=== PATIENT | female | born 1955 | race Caucasian/White ===

== ENCOUNTER 2016-07-14 08:14 | Emergency (ER) | payer MEDICARE, OTHER ==
[~2016-07-14] VITALS: Ht 177.8 cm; Wt 62.0 kg
[~2016-07-14 08:14] MED LIST: BACL20TA PO; ZOFR4TAB3 SL; ZOLO50TA PO
[2016-07-14 08:20] VITALS: BP 181/107; PULSE 90; RESP 18; TEMP 97.8; O2SAT 96
[2016-07-14] MEDS ORDERED: BACL20TA PO (08:36)
[2016-07-14] MEDS ORDERED: ZOLO25TA PO (08:36)
[2016-07-14 08:37] VITALS: BP 181/107; PULSE 80; RESP 17; TEMP 97.8; O2SAT 96
[2016-07-14] MEDS ORDERED: DEXAMETHASONE SOD PHOS 20 MG/5 ML VIAL IM ONE (08:45)
[2016-07-14] MEDS ORDERED: KETOROLAC TROMETHAMINE 60 MG/2 ML (IM) VIAL IM ONE (08:45)
[2016-07-14] MEDS ORDERED: PERC5TAB12 PO (08:48)
[2016-07-14] MEDS ORDERED: MEDR4PAK PO (08:48)
[2016-07-14] MEDS ORDERED: DIAZ5 PO (08:48)
--- NOTE | 2016-07-14 08:48 | PD ---
HPI Chief Complaint: Back/ Neck Pain or Injury Time Seen by Provider: 08:24 Travel History International Travel<30 days: No Contact w/Intl Traveler<30days: No History of Present Illness HPI Patient is a 61 year old female who presents to ER with complaint of back pain. Patient reports that she lifts and rolls her who is disabled and re- injured her back 3 days ago. Report that she has history of low back pain in the past. Reports that pain is nonradiating in nature. Reports pain across who whole low back. Denies saddle anesthesia. Denies incontinence or retention or urine or bowel. Denies saddle anesthesia. Patient denies fever/chills. Patient ambulatory in the ER. PFSH Past Medical History Depression: Yes Diminished Hearing: No Tubal Ligation: Yes Past Surgical History Neurologic Surgery: Yes (CERVICAL DISC) Social History Alcohol Use: Yes (6-8 beers daily) Tobacco Use: Yes (more than 1ppd) Substance Use: No Allergies-Medications (Allergen,Severity, Reaction): Coded Allergies: No Known Allergies (Verified , 07/14/16) Reported Meds & Prescriptions Reported Meds & Active Scripts Active Percocet (Oxycodone-Acetaminophen) 5-325 mg Tab 1 Tab PO Q6H PRN Medrol Dosepak (Methylprednisolone) 4 Mg Dspk 4 Mg PO DIRECTED Per Pharmacist direction Valium (Diazepam) 5 Mg Tab 5 Mg PO BID PRN Reported Zoloft (Sertraline HCl) 25 Mg Tab 25 Mg PO DAILY Baclofen 20 Mg Tab 20 Mg PO HS Review of Systems General / Constitutional: No: Fever Eyes: No: Visual changes HENT: No: Headaches Cardiovascular: No: Chest Pain or Discomfort Respiratory: No: Shortness of Breath Gastrointestinal: No: Abdominal Pain Genitourinary: No: Dysuria Musculoskeletal: Positive: Pain ("low back pain") Skin: No Rash Neurologic: No: Weakness Psychiatric: No: Depression Endocrine: No: Polydipsia Hematologic/Lymphatic: No: Easy Bruising Physical Exam Narrative GENERAL: Nad, nontoxic SKIN: Focused skin assessment warm/dry. HEAD: Atraumatic. Normocephalic. EYES: Pupils equal and round. No scleral icterus. No injection or drainage. ENT: No nasal bleeding or discharge. Mucous membranes pink and moist. NECK: Trachea midline. No JVD. CARDIOVASCULAR: Regular rate and rhythm. No murmur appreciated. RESPIRATORY: No accessory muscle use. Clear to auscultation. Breath sounds equal bilaterally. GASTROINTESTINAL: Abdomen soft, non-tender, nondistended. No saddle anesthesia MUSCULOSKELETAL: No obvious deformities. No clubbing. No cyanosis. No edema. Patient with paraspinal muscle tenderness to lumbar spine, Patient walking in ER with normal gait. NEUROLOGICAL: Awake and alert. No obvious cranial nerve deficits. Motor grossly within normal limits. Normal speech. Data Data Last Documented VS Vital Signs Date Time Temp Pulse Resp B/P Pulse Ox O2 Delivery O2 Flow Rate FiO2 07/14/16 08:37 97.8 80 17 181/107 96 Orders Spine, Lumbar - Ltd (Ap & Lat) (07/14/16 ) Ketorolac Inj (Toradol Inj) (07/14/16 08:45) Dexamethasone Inj (Decadron Inj) (07/14/16 08:45) Urinalysis - C+S If Indicated (07/14/16 08:36) Bladder Scan PRN (07/14/16 08:36) Labs Laboratory Tests Test 07/14/16 08:45 Urine Collection Type CLEAN CATCH Urine Color YELLOW Urine Turbidity CLEAR Urine pH 5.5 Urine Specific [place] 1.008 Urine Protein NEG mg/dL Urine Glucose (UA) NEG mg/dL Urine Ketones NEG mg/dL Urine Occult Blood NEG Urine Nitrite NEG Urine Bilirubin NEG Urine Leukocyte Esterase NEG Urine RBC 0-3 /hpf Urine Squamous Epithelial 0-5 /hpf Cells Microscopic Urinalysis Comment CULT NOT INDICATED Urine Collection Time 08:45 [facility] Medical Decision Making Medical Screen Exam Complete: Yes Emergency Medical Condition: Yes Interpretation(s) Vital Signs Date Time Temp Pulse Resp B/P Pulse Ox O2 Delivery O2 Flow Rate FiO2 07/14/16 08:20 97.8 90 18 181/107 96 Differential Diagnosis lumbar strain, cauda equina (though unlikely), lumbar fracture (though unlikely) Narrative Course Patient is a 61 year old female who presents to ER with c/o of low back pain which began 3 days ago after she lifted and turned her who is disabled. Reports history of low back pain in the past, reports that pain exacerbated by caring for her . Patient reports no gait instability. Denies incontinence/retention or urine or stool, denies saddle anesthesia and is ambulating without difficultly in the ER which makes cauda equina an unlikely diagnosis. Plan to xray low back to evaluate for any obvious explanation of low back pain. Will give dose of toradol as well as dexamethasone and re- evaluate. Patient did drive to ER today, will write her for RX for muscle relaxor and pain medications PVR 42, patient ambulating in ER with normal gait Xray of lumbar spine: Mild degenerative disc change, mild degenerative joint changes, osteopenia and scoliosis. A copy of patient's x-ray report was given to her. Patient will follow-up with orthopedic surgery return to emergency room as needed. Diagnosis Primary Impression: Lumbar back pain Qualified Code: M54.5 - Acute bilateral low back pain without sciatica Additional Impressions: Degenerative lumbar disc Degenerative joint disease Qualified Code: M19.90 - Osteoarthritis, unspecified osteoarthritis type, unspecified site Referrals: Lonnie Hallman MD Patient Instructions: General Instructions Additional Instructions: Please return to ER as needed Please do not drive or operate heavy machinery while taking narcotic pain medications Please follow up with orthopedic surgeon as well as your primary care doctor Med/Other Pt SpecificInfo: Prescription(s) given Scripts Oxycodone-Acetaminophen (Percocet)5-325 mg Tab1 Tab PO Q6H PRN (PAIN) #15 TAB Ref 0 Prov:Simin Figueroa DO 07/14/16 Methylprednisolone Dosepak (Medrol Dosepak)4 Mg Dspk4 Mg PO DIRECTED #1 DSPK Ref 0 Per Pharmacist direction Prov:Simin Figueroa DO 07/14/16 Diazepam (Valium)5 Mg Tab5 Mg PO BID PRN (SPASM) #12 TAB Ref 0 Prov:Simin Figueroa DO 07/14/16 Disposition: 01 DISCHARGE HOME Condition: Stable Simin Figueroa DO Jul 14, 2016 08:48
[2016-07-14 08:53] LABS: BLOOD, URINE NEG (NEG); GLUCOSE,URINE NEG (NEG); KETONE, URINE NEG (NEG); NITRITE,URINE NEG (NEG); PH, URINE 5.5 (5.0-8.5)
[2016-07-14 08:59] LABS: COMMENT (UR) CULT NOT INDICATED; CULTURE IF INDICATED CULT NOT INDICATED; METHOD OF COLLECTION CLEAN CATCH; RBC, URINE 0-3 /hpf (0-3); SQUAMOUS EPITHELIAL CELL URINE 0-5 /hpf (0-5); URINE COLOR YELLOW (YELLW/STRAW)
--- NOTE | 2016-07-14 09:18 | RADHPO ---
EXAM DATE/TIME: 07/14/2016 08:42 [facility] COMPARISON: No previous studies available for comparison. INDICATIONS : Severe low back pain & leg numbness after assisting/rolling disabled family member. MEDICAL HISTORY : Multiple sclerosis. SURGICAL HISTORY : Tubal ligation. Fusion, cervical. ENCOUNTER: Initial ACUITY: 3 days PAIN SCORE: 10/10 LOCATION: lumbar spine FINDINGS: AP and lateral views of the lumbar spine were obtained and demonstrate 5 [id number] lumbar-type vertebra with mild scoliosis. There is diffuse osteopenia with no acute fracture or malalignment. The re are mild degenerative disc changes with disc space narrowing and hypertrophic change. There are de generative changes involving the lower facets. The sacrum is intact. CONCLUSION: 1. Mild degenerative disc change. 2. Mild degenerative joint changes. 3. Osteopenia and scoliosis. Kaushik Mantilla MD on July 14, 2016 at 9:15 Board Certified Radiologist. This report was verified electronically.
[2016-07-14 09:30] VITALS: BP 158/84
== END 2016-07-14 09:34 | disposition home or self-care (01) ==
LOC: PHED 08:14
DX: M54.5 Low back pain (principal); M51.36 Other intervertebral disc degeneration, lumbar region; M19.90 Unspecified osteoarthritis, unspecified site; F17.200 Nicotine dependence, unspecified, uncomplicated; Z86.59 Personal history of other mental and behavioral disorders; X50.9XXA Other and unspecified overexertion or strenuous movements or postures, initial encounter; Y93.F2 Activity, caregiving, lifting
CPT/HCPCS: 72100; 81001; 96372; 99283; J1100; J1885

== ENCOUNTER 2016-07-17 08:21 | Emergency (ER) | payer OTHER ==
[2016-07-17] VITALS (7 sets, daily range): BP systolic 129–226; BP diastolic 65–113; PULSE 72–102; RESP 20–22; TEMP 98.2; O2SAT 95–98
[~2016-07-17] VITALS: Ht 177.8 cm; Wt 64.0 kg
[~2016-07-17 08:21] MED LIST changes: +DIAZ5 PO; +MEDR4PAK PO; +PERC5TAB12 PO; -ZOFR4TAB3 SL; +ZOLO25TA PO; -ZOLO50TA PO
[2016-07-17] MEDS ORDERED: oxyCODONE/ACETAMINOPHEN 5 MG/325 MG TAB PO ONE ×2 (09:30→17:00)
--- NOTE | 2016-07-17 11:02 | RADRPT ---
EXAM DATE/TIME: 07/17/2016 09:56 [facility] COMPARISON: SPINE LUMBAR LTD (AP & LAT), July 14, 2016, 8:42. INDICATIONS : Pain. Low back pain after lifting patient. MEDICAL HISTORY : None. SURGICAL HISTORY : Fusion, cervical. ENCOUNTER: Initial ACUITY: 1 day PAIN SCORE: 5/10 LOCATION: Paraspinal TECHNIQUE: Multiplanar multisequence MRI of the lumbar spine was performed without contrast. FINDINGS: The most caudal appearing lumbar vertebra is numbered as L5. There is mild multilevel osteophyte form ation. Diffuse disc desiccation and mild disc space narrowing noted. There is mild anterior endplate edema at L2-3 felt to be reactive from degenerative disc disease. Conus unremarkable. No compression deformities. T12-L1: The thecal sac has a normal diameter. No evidence of disc bulge or protrusion. The neural foramina are patent bilaterally. L1-L2: The thecal sac has a normal diameter. No evidence of disc bulge or protrusion. The neural foramina are patent bilaterally. L2-L3: Minimal diffuse disc bulge and mild facet and ligamentum flavum hypertrophy. L3-L4: Mild diffuse disc bulge is noted with mild ligamentum flavum hypertrophy and facet hypertrophy. No ca nal or foraminal narrowing. L4-L5: Diffuse disc bulge eccentric to the right foraminal region with mild impingement upon the L5 nerve ro ots of the right lateral recess and abutment of the left L5 nerve roots. No canal or foraminal narrow ing. L5-S1: Mild diffuse disc bulge and left lateral osteophyte formation with mild mass effect on the left L5 ex iting nerve. No canal or foraminal stenosis. CONCLUSION: Multilevel degenerative changes are noted as above. Perry Elena MD on July 17, 2016 at 10:59 Board Certified Radiologist. This report was verified electronically.
--- NOTE | 2016-07-17 11:23 | PD ---
HPI Chief Complaint: Back/ Neck Pain or Injury Time Seen by Provider: 08:46 Travel History International Travel<30 days: No Contact w/Intl Traveler<30days: No Traveled to known affect area: No PFSH Past Medical History Depression: Yes Diminished Hearing: No Neurologic: Yes (MS) Tetanus Vaccination: > 5 Years Influenza Vaccination: No : 1 Para: 1 Miscarriage: 0 : 0 Tubal Ligation: Yes Past Surgical History Neurologic Surgery: Yes (CERVICAL DISC) Other Surgery: Yes (right humerus fx repair ) Social History Alcohol Use: Yes (6-8 beers daily) Tobacco Use: Yes (more than 1ppd) Substance Use: No Allergies-Medications (Allergen,Severity, Reaction): Coded Allergies: No Known Allergies (Verified , 07/17/16) Reported Meds & Prescriptions Reported Meds & Active Scripts Active Percocet (Oxycodone-Acetaminophen) 5-325 mg Tab 1 Tab PO Q6H PRN Medrol Dosepak (Methylprednisolone) 4 Mg Dspk 4 Mg PO DIRECTED Per Pharmacist direction Valium (Diazepam) 5 Mg Tab 5 Mg PO BID PRN Reported Zoloft (Sertraline HCl) 25 Mg Tab 25 Mg PO DAILY Baclofen 20 Mg Tab 20 Mg PO HS Data Data Last Documented VS Vital Signs Date Time Temp Pulse Resp B/P Pulse Ox O2 Delivery O2 Flow Rate FiO2 07/17/16 18:34 20 07/17/16 16:59 77 167/90 98 Room Air 07/17/16 08:24 98.2 Orders Mri L Spine W/O Contrast (07/17/16 ) Oxycodone-Acetamin 5-325 Mg (Percocet (07/17/16 09:30) Iv Access Insert/Monitor (07/17/16 12:10) Ecg Monitoring (07/17/16 12:10) Oximetry (07/17/16 12:10) Sodium Chloride 0.9% Flush (Ns Flush) (07/17/16 12:15) Oxycodone-Acetamin 5-325 Mg (Percocet (07/17/16 17:00) MDM Diagnosis Primary Impression: DDD (degenerative disc disease), lumbar Additional Impression: Lumbar back pain Disposition: 01 DISCHARGE HOME Condition: Stable Bowen Dillon MD Jul 17, 2016 11:23
[2016-07-17] MEDS ORDERED: SODIUM CHLORIDE 0.9% FLUSH 10 ML FLUSH IV FLUSH PRN (12:15)
--- NOTE | 2016-07-17 13:35 | HHI.FF ---
Face to Face Verification Diagnosis: (1) DDD (degenerative disc disease), lumbar (2) Degenerative lumbar disc (3) Lumbar back pain Physical Therapy Order: Evaluate and Treat Home Health Nursing Order: Signs/symptoms of disease process Grapple Skidder Operator Order: To Evaluate: Living conditions/environment I have seen patient Karolina Mckeon on 07/17/16. My clinical findings support the need for the requested home health care services because: Ltd mobility - disease progression High risk of falls I certify that my clinical findings support that this patient is homebound because: Unsteady gait/balance Bowen Dillon MD Jul 17, 2016 13:35
--- NOTE | 2016-07-18 16:10 | PD ---
HPI Chief Complaint: Back/ Neck Pain or Injury Time Seen by Provider: 08:46 Travel History International Travel<30 days: No Contact w/Intl Traveler<30days: No Traveled to known affect area: No History of Present Illness HPI Patient 61-year-old female who presents with low back pain now radiating down her right leg ever since she attempted to move her . Patient's apparently is near bedbound and she attempted to move him onto the bed lee a few days ago. She states that she had x-rays an outside facility and the pain is been gradually worsening over the past 2-3 days and now she is having severe limitations in mobility secondary to pain. She denies any dysuria but does endorse some saddle anesthesia. Denies any fevers. PFSH Past Medical History Depression: Yes Diminished Hearing: No Neurologic: Yes (MS) Tetanus Vaccination: > 5 Years Influenza Vaccination: No : 1 Para: 1 Miscarriage: 0 : 0 Tubal Ligation: Yes Past Surgical History Neurologic Surgery: Yes (CERVICAL DISC) Other Surgery: Yes (right humerus fx repair ) Social History Alcohol Use: Yes (6-8 beers daily) Tobacco Use: Yes (more than 1ppd) Substance Use: No Allergies-Medications (Allergen,Severity, Reaction): Coded Allergies: No Known Allergies (Verified , 07/17/16) Reported Meds & Prescriptions Reported Meds & Active Scripts Active Percocet (Oxycodone-Acetaminophen) 5-325 mg Tab 1 Tab PO Q6H PRN Medrol Dosepak (Methylprednisolone) 4 Mg Dspk 4 Mg PO DIRECTED Per Pharmacist direction Valium (Diazepam) 5 Mg Tab 5 Mg PO BID PRN Reported Zoloft (Sertraline HCl) 25 Mg Tab 25 Mg PO DAILY Baclofen 20 Mg Tab 20 Mg PO HS Review of Systems Except as stated in HPI: all other systems reviewed are Neg Physical Exam Narrative GENERAL: Well-developed well-nourished in no apparent distress SKIN: Focused skin assessment warm/dry. HEAD: Atraumatic. Normocephalic. EYES: Pupils equal and round. No scleral icterus. No injection or drainage. ENT: No nasal bleeding or discharge. Mucous membranes pink and moist. NECK: Trachea midline. No JVD. CARDIOVASCULAR: Regular rate and rhythm. No murmur appreciated. RESPIRATORY: No accessory muscle use. Clear to auscultation. Breath sounds equal bilaterally. GASTROINTESTINAL: Abdomen soft, non-tender, nondistended. Hepatic and splenic margins not palpable. MUSCULOSKELETAL: No obvious deformities. No clubbing. No cyanosis. No edema. There is no midline CT or L-spine tenderness. No tenderness at the SI joints, spell this is stable. Patient has 5 out of 5 strength in bilateral lower extremities in extension at the knee as well as plantar flexion of the foot. Reflexes are 2+ at the patella and equal bilaterally. NEUROLOGICAL: Awake and alert. No obvious cranial nerve deficits. Motor grossly within normal limits. Normal speech. Rectal exam shows normal tone patient is unable to perform Kegel maneuvers. Exam was performed with female nurse credit analysis manager at all times. PSYCHIATRIC: Appropriate mood and affect; insight and judgment normal. Data Data Last Documented VS Vital Signs Date Time Temp Pulse Resp B/P Pulse Ox O2 Delivery O2 Flow Rate FiO2 07/17/16 18:34 20 07/17/16 16:59 77 167/90 98 Room Air 07/17/16 08:24 98.2 Orders Mri L Spine W/O Contrast (07/17/16 ) Oxycodone-Acetamin 5-325 Mg (Percocet (07/17/16 09:30) Iv Access Insert/Monitor (07/17/16 12:10) Ecg Monitoring (07/17/16 12:10) Oximetry (07/17/16 12:10) Sodium Chloride 0.9% Flush (Ns Flush) (07/17/16 12:15) Oxycodone-Acetamin 5-325 Mg (Percocet (07/17/16 17:00) MDM Medical Decision Making Medical Screen Exam Complete: Yes Emergency Medical Condition: Yes Differential Diagnosis Low back pain, cauda equina is a possibility, degenerative disease, occult fracture. Narrative Course Patient was roomed emergency department, she appears fairly comfortable but does have some signs symptoms of cauda equina but certainly not overt. Indications for MRI Last 24 hours Impressions Lumbar Spine MRI 07/17/16 0000 Signed Impressions: Service Date/Time: Tuesday, July 17, 2016 09:56 - CONCLUSION: Multilevel degenerative changes are noted as above. Perry Elena MD Patient does not have significant stenosis on her MRI. No fracture seen. She was attempted to be ambulated but is fairly unstable on her feet. I discussed with her that this could be cause for admission for consideration of placement into a senior living and she would like to go home. I discussed at length with her that I am concerned about her going home. She has agreed to have home health care, and evaluate her. I think this is reasonable. Case management has been involved. The patient will get a ride home. Diagnosis Primary Impression: DDD (degenerative disc disease), lumbar Additional Impression: Lumbar back pain Patient Instructions: General Instructions, Narcotic given in the ED, Back Pain (ED), Degenerative Disc Disease (ED) Departure Forms: Tests/Procedures Disposition: 01 DISCHARGE HOME Condition: Stable Bowen Dillon MD Jul 18, 2016 16:10
== END 2016-07-17 21:24 | disposition home or self-care (01) ==
LOC: NEPE 08:21
DX: M51.36 Other intervertebral disc degeneration, lumbar region (principal); M54.5 Low back pain; M79.604 Pain in right leg; R20.0 Anesthesia of skin; F17.200 Nicotine dependence, unspecified, uncomplicated; Z86.59 Personal history of other mental and behavioral disorders; Z86.69 Personal history of other diseases of the nervous system and sense organs
CPT/HCPCS: 72148

== ENCOUNTER 2016-08-01 10:08 | Emergency (ER) | payer MEDICARE, OTHER ==
[2016-08-01 10:13] VITALS: PULSE 99; RESP 18; TEMP 98.4; O2SAT 97
[2016-08-01 10:40] VITALS: BP 177/83; PULSE 82; RESP 16; O2SAT 98
--- NOTE | 2016-08-01 10:48 | PD ---
HPI Chief Complaint: Edema Time Seen by Provider: 10:34 Travel History International Travel<30 days: No Contact w/Intl Traveler<30days: No Traveled to known affect area: No History of Present Illness HPI The patient was seen and examined in the presence of the nurse. She complains of swelling in her legs. Duration one week. No injury. Not having pain. Swelling is in both legs from the midshin down. She saw her physician this past week and mentioned to her but she is frustrated that nothing was done are checked. No alleviating factors. Severity symptoms is moderate. No fevers. PFSH Past Medical History Hx Anticoagulant Therapy: No Depression: Yes Cardiovascular Problems: Yes (HTN) Diabetes: No Diminished Hearing: No Neurologic: Yes (MS) ?: Not : 1 Para: 1 Miscarriage: 0 : 0 Tubal Ligation: Yes Past Surgical History Hysterectomy: No Neurologic Surgery: Yes (CERVICAL DISC) Other Surgery: Yes (right humerus fx repair ) Social History Alcohol Use: Yes (6-8 beers daily) Tobacco Use: Yes (more than 1ppd) Substance Use: No Allergies-Medications (Allergen,Severity, Reaction): Coded Allergies: No Known Allergies (Verified , 08/01/16) Reported Meds & Prescriptions Reported Meds & Active Scripts Active Percocet (Oxycodone-Acetaminophen) 5-325 mg Tab 1 Tab PO Q6H PRN Reported Zoloft (Sertraline HCl) 25 Mg Tab 25 Mg PO HS Baclofen 20 Mg Tab 20 Mg PO HS Review of Systems General / Constitutional: No: Fever Eyes: No: Visual changes HENT: No: Headaches Cardiovascular: Positive: Edema, No: Chest Pain or Discomfort Respiratory: No: Shortness of Breath Gastrointestinal: No: Abdominal Pain Genitourinary: No: Dysuria Musculoskeletal: Positive: Edema, Pain Skin: No Rash Neurologic: No: Weakness Psychiatric: No: Depression Endocrine: No: Polydipsia Hematologic/Lymphatic: No: Easy Bruising Physical Exam Narrative GENERAL: Well-nourished, well-developed patient in no apparent distress. SKIN: Focused skin assessment reveals no rash and nodules. Skin is Warm and dry. HEAD: Atraumatic. Normocephalic. EYES: Pupils equal and round. No scleral icterus. No injection or drainage. ENT: No nasal bleeding or discharge. Mucous membranes pink and moist. NECK: Trachea midline. No JVD. CARDIOVASCULAR: Regular rate and rhythm. No murmur appreciated. RESPIRATORY: No accessory muscle use. Clear to auscultation. Breath sounds equal bilaterally. GASTROINTESTINAL: Abdomen soft, non-tender, nondistended. Hepatic and splenic margins not palpable. MUSCULOSKELETAL: No obvious deformities. No clubbing. No cyanosis. Symmetric edema from the midshin down through the feet. NEUROLOGICAL: Awake and alert. No obvious cranial nerve deficits. Motor grossly within normal limits. Normal speech. PSYCHIATRIC: Appropriate mood and affect; insight and judgment normal. Data Data Last Documented VS Vital Signs Date Time Temp Pulse Resp B/P Pulse Ox O2 Delivery O2 Flow Rate FiO2 08/01/16 10:47 80 16 Room Air 08/01/16 10:40 177/83 98 08/01/16 10:13 98.4 Orders Complete Blood Count With Diff (08/01/16 10:44) Comprehensive Metabolic Panel (08/01/16 10:44) Iv Access Insert/Monitor (08/01/16 10:44) Labs Laboratory Tests Test 08/01/16 11:00 White Blood Count 9.9 TH/MM3 Red Blood Count 4.01 MIL/MM3 Hemoglobin 13.0 GM/DL Hematocrit 39.1 % Mean Corpuscular Volume 97.5 FL Mean Corpuscular Hemoglobin 32.5 PG Mean Corpuscular Hemoglobin 33.3 % Concent Red Cell Distribution Width 13.2 % Platelet Count 335 TH/MM3 Mean Platelet Volume 7.8 FL Neutrophils (%) (Auto) 57.1 % Lymphocytes (%) (Auto) 19.0 % Monocytes (%) (Auto) 12.4 % Eosinophils (%) (Auto) 3.1 % Basophils (%) (Auto) 8.4 % Neutrophils # (Auto) 5.7 TH/MM3 Lymphocytes # (Auto) 1.9 TH/MM3 Monocytes # (Auto) 1.2 TH/MM3 Eosinophils # (Auto) 0.3 TH/MM3 Basophils # (Auto) 0.8 TH/MM3 CBC Comment AUTO DIFF Differential Comment AUTO DIFF CONFIRMED Sodium Level 134 MEQ/L Potassium Level 3.9 MEQ/L Chloride Level 94 MEQ/L Carbon Dioxide Level 27.0 MEQ/L Anion Gap 13 MEQ/L Blood Urea Nitrogen 4 MG/DL Creatinine 0.32 MG/DL Estimat Glomerular Filtration 210 ML/MIN Rate Random Glucose 78 MG/DL Calcium Level 8.4 MG/DL Total Bilirubin 0.2 MG/DL Aspartate Amino Transf 41 U/L (AST/SGOT) Alanine Aminotransferase 33 U/L (ALT/SGPT) Alkaline Phosphatase 201 U/L Total Protein 6.6 GM/DL Albumin 3.0 GM/DL MDM Medical Decision Making Medical Screen Exam Complete: Yes Emergency Medical Condition: Yes Medical Record Reviewed: Yes Differential Diagnosis Renal failure, liver failure, anasarca Narrative Course I have reviewed the patient's electronic medical record. Patient was here several times last month for back pain IV placed CBC reasonably normal Metabolic profile shows normal renal function LFTs reasonably normal Stable for outpatient follow-up for her bilateral symmetric leg edema of one week Recommend she elevate legs and use low-sodium diet and wear knee-high compression stockings Check and record blood pressure daily for elevated BP reading here Diagnosis Primary Impression: Leg edema Additional Impression: Elevated blood pressure reading Additional Instructions: Elevate legs Use low-sodium diet Wear knee-high compression stockings Check and record blood pressure daily The patient was advised to follow up with their physician and return if they worsen. Med/Other Pt SpecificInfo: Other Disposition: 01 DISCHARGE HOME Condition: Stable Randolph Mckeon MD August 01, 2016 10:48
[2016-08-01 11:14] LABS: AUTOMATED NEUTROPHIL # 5.7 TH/MM3 (1.8-7.7); BASOPHIL # 0.8 TH/MM3 (0-0.2); BASOPHIL % 8.4 % (0.0-2.0); EOSINOPHIL # 0.3 TH/MM3 (0-0.4); EOSINOPHIL % 3.1 % (0.0-4.0); HEMATOCRIT 39.1 % (35.0-46.0); LYMPHOCYTE # 1.9 TH/MM3 (1.0-4.8); MEAN CELL VOLUME 97.5 FL (80.0-100.0); MEAN CORPUSCULAR HEMOGLOBIN 32.5 PG (27.0-34.0); MEAN CORPUSCULAR HGB CONC 33.3 % (32.0-36.0); MONO % 12.4 % (0.0-8.0); NEUT % 57.1 % (16.0-70.0); PLATELET COUNT 335 TH/MM3 (150-450); RED BLOOD COUNT 4.01 MIL/MM3 (4.00-5.30); RED CELL DISTRIBUTION WIDTH 13.2 % (11.6-17.2); WHITE BLOOD COUNT 9.9 TH/MM3 (4.0-11.0)
[2016-08-01 11:15] LABS: HEMO FLAGS AUTO DIFF
[2016-08-01 11:22] LABS: CHLORIDE 94 MEQ/L (98-107); POTASSIUM 3.9 MEQ/L (3.5-5.1); SODIUM (NA) 134 MEQ/L (136-145)
[2016-08-01 11:26] LABS: ANION GAP 13 MEQ/L (5-15); BLOOD UREA NITROGEN 4 MG/DL (7-18)
[2016-08-01 11:29] LABS: ALT (GPT) 33 U/L (10-53); AST (GOT) 41 U/L (15-37); GLOMERULAR FILTRATION RATE 210 ML/MIN (>89)
[2016-08-01 11:30] LABS: TOTAL BILIRUBIN ADULT 0.2 MG/DL (0.2-1.0)
[2016-08-01 11:32] LABS: ALKALINE PHOSPHATASE 201 U/L (45-117)
[2016-08-01 11:37] LABS: SCAN/DIFF AUTO DIFF CONFIRMED
[2016-08-01 12:34] VITALS: BP 188/79
== END 2016-08-01 12:36 | disposition home or self-care (01) ==
LOC: PHED 10:08
DX: R60.0 Localized edema (principal); R03.0 Elevated blood-pressure reading, without diagnosis of hypertension; F17.200 Nicotine dependence, unspecified, uncomplicated; Z86.59 Personal history of other mental and behavioral disorders; Z86.79 Personal history of other diseases of the circulatory system; Z86.69 Personal history of other diseases of the nervous system and sense organs
CPT/HCPCS: 80053; 85025; 99284